=== PATIENT | male | born 1985 | race Caucasian/White ===

== ENCOUNTER 2016-09-16 18:18 | Emergency (ER) | payer MEDICAID ==
[2016-09-16] MEDS ORDERED: Sodium Chloride 0.9% 10 ML Syringe FLUSH PRN (18:25)
[2016-09-16] MEDS ORDERED: Lactated Ringers 1,000 ML IV ONE (19:15)
[2016-09-16] MEDS ORDERED: LORazepam 2 MG/ML MDV IVPUSH ONE (19:32)
[2016-09-16] MEDS ORDERED: LORazepam 2 MG/ML MDV ONE (19:36)
[2016-09-16] MEDS ORDERED: Haloperidol Lactate 5 MG/ML SDV IVPUSH STA (19:45)
[2016-09-16] MEDS ORDERED: Haloperidol Lactate 5 MG/ML SDV IVPUSH ONE (19:45)
[2016-09-16] MEDS ORDERED: Haloperidol Lactate 5 MG/ML SDV ONE (19:48)
[2016-09-16 20:16] VITALS: BP 129/70
--- NOTE | 2016-09-16 21:15 | EDM.PDOC ---
ED HPI GENERAL MEDICAL PROBLEM - General Chief Complaint: Drug or Alcohol Abuse Stated Complaint: [facility] Time Seen by Provider: 09/16/16 18:25 Source of Information: Reports: Patient History Limitations: Reports: No Limitations - History of Present Illness INITIAL COMMENTS - FREE TEXT/NARRATIVE: 31-year-old male is brought in by ambulance for evaluation and treatment of intoxication and suicidal ideation. The patient's friend, Eder, is present. Patient is unable to provide any history. He is only complaining of dental pain which appears at the present for the last at least 10 days. Eder states that he knew Trace growing up in [place]. They have been friends the last 20 years. He states that for the last few years he has been homeless after him and his he's had multiple other problems. As far as Eder is where he does not have any chronic underlying medical conditions. He has struggled with drug and alcohol abuse for the last 2 years but as he does not know the extent of this. Knows that he has been inpatient psych before as a teenager. Trace is currently staying at Eder's home. Eder states he found Matheus at home after drinking everclear. Unknown amount consumed. 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 Trace's mother called and stated that he is indeed homeless in [place]. He has struggled with drug and alcohol abuse. Reports he had a previous suicide attempt as a teenager. Reports he has been in the inpatient psych unit a teenager. Reports that he has overdosed on heroine in the past which nearly killed him. Treatments JAVA TECHNICAL ARCHITECT: Reports: IV/IO - Related Data Allergies Allergy/AdvReac Type Severity Reaction Status Date / Time Sulfa (Sulfonamide Allergy Itching Verified 09/16/16 19:06 Antibiotics) Past Medical History Neurological History: Reports: Brain injury Psychiatric History: Reports: Addiction, Bipolar - Past Surgical History HEENT Surgical History: Reports: Adenoidectomy, Tonsillectomy GI Surgical History: Reports: Appendectomy Social & Family History - Tobacco Use Smoking Status *Q: Current Every Day Smoker Years of Tobacco use: 17 Packs/Tins Daily: 1 Used Tobacco, but Quit: No Second Hand Smoke Exposure: No - Caffeine Use Caffeine Use: Reports: Soda - Alcohol Use Date of Last Drink: 09/16/16 Time of Last Drink: 17:00 - Recreational Drug Use Recreational Drug Use: Yes Drug Use in Last 12 Months: Yes Recreational Drug Type: Reports: Heroin, Marijuana/Hashish, Methamphetamine Other Recreational Drug Type: Patient's roommate states that patient last used marijuana 10 days ago, has had a heroin overdose in the past, and in the last month has used Meth. Recreational Drug Use Frequency: Daily ED ROS GENERAL - Review of Systems Review Of Systems: ROS reveals no pertinent complaints other than HPI. HEENT: Reports: Dental Pain - Physical Exam Exam: See Below Exam Limited By: Intoxication General Appearance: Alert, WD/WN, No Apparent Distress Throat/Mouth: Other (patinet intoxicated unable to evaluate dental complaint at this time as the patient is not compliant ) Respiratory/Chest: No Respiratory Distress, Lungs Clear, Normal Breath Sounds Cardiovascular: Normal Peripheral Pulses, Regular Rate, Rhythm, No Murmur GI/Abdominal: Soft, Non-Tender Neuro Exam (Abbreviated): Alert Skin Exam: Warm, Dry, Normal Color EKG INTERPRETATION EKG Date: 09/16/16 Time: 18:30 Rhythm: NSR Rate (beats/min): 77 [place]: normal P-wave: present QRS: normal ST-T: normal QT: normal EKG Interpretation Comments: NSR at 77 bpm. No ischemia. Reviewed by myself and Dr. Morales. Course - Vital Signs Last Recorded V/S: Last Vital Signs Temp 35.6 C 09/16/16 18:22 Pulse 93 09/16/16 20:15 Resp 17 09/16/16 20:15 BP 129/70 09/16/16 20:15 Pulse Ox 92 L 09/16/16 20:15 - Orders/Labs/Meds Orders: Active Orders 24 hr Category Date Time Status EKG 12 Lead [EKG Documentation Completion] [RC] STAT Care 09/16/16 18:26 Active Peripheral IV Care [RC] . DIRECTED Care 09/16/16 18:26 Active Peripheral IV Insertion Adult [OM.PC] Stat Oth 09/16/16 18:26 Ordered Labs: Laboratory Tests 09/16/16 09/16/16 09/16/16 Range/Units 18:15 18:15 18:15 WBC (4.23-9.07) K/mm3 RBC (4.63-6.08) M/mm3 Hgb (13.7-17.5) gm/L Hct (40.1-51.0) % MCV (79.0-92.2) fl MCH (25.7-32.2) pg MCHC (32.2-35.5) g/dl RDW Std Deviation (35.1-43.9) fL Plt Count (163-337) K/mm3 MPV (9.4-12.3) fl Neut % (Auto) (34.0-67.9) % Lymph % (Auto) (21.8-53.1) % [place] % (Auto) (5.3-12.2) % Eos % (Auto) (0.8-7.0) Baso % (Auto) (0.1-1.2) % Neut # (Auto) (1.78-5.38) K/mm3 Lymph # (Auto) (1.32-3.57) K/mm3 [place] # (Auto) (0.30-0.82) K/mm3 Eos # (Auto) (0.04-0.54) K/mm3 Baso # (Auto) (0.01-0.08) K/mm3 Sodium (136-145) mEq/L Potassium (3.5-5.1) mEq/L Chloride (98-107) mEq/L Carbon Dioxide (21-32) mEq/L Anion Gap (5-15) BUN (7-18) mg/dL Creatinine (0.7-1.3) mg/dL Est Cr Clr Drug Dosing Estimated GFR (MDRD) (>60) mL/min BUN/Creatinine Ratio (14-18) Glucose (74-106) mg/dL Calcium (8.5-10.1) mg/dL Magnesium (1.8-2.4) mg/dl Total Bilirubin (0.2-1.0) mg/dL AST (15-37) U/L ALT (16-63) U/L Alkaline Phosphatase (46-116) U/L Total Protein (6.4-8.2) g/dl Albumin (3.4-5.0) g/dl Globulin gm/dL Albumin/Globulin Ratio (1-2) TSH 3rd Generation 1.155 (0.358-3.74) uIU/mL Urine Color (Yellow) Urine Appearance (Clear) Urine pH (5.0-8.0) Ur Specific [place] (1.005-1.030) Urine Protein (Negative) Urine Glucose (UA) (Negative) Urine Ketones (Negative) Urine Occult Blood (Negative) Urine Nitrite (Negative) Urine Bilirubin (Negative) Urine Urobilinogen (0.2-1.0) Ur Leukocyte Esterase (Negative) Salicylates 2.1 L (2.8-20) mg/dL Urine Opiates Screen (NEGATIVE) Ur Buprenorphine Scrn (NEGATIVE) Ur Oxycodone Screen (NEGATIVE) Urine Methadone Screen (NEGATIVE) Ur Propoxyphene Screen (NEGATIVE) Acetaminophen 0 L (10-30) ug/mL Ur Barbiturates Screen (NEGATIVE) Ur Tricyclics Screen (NEGATIVE) Ur Phencyclidine Scrn (NEGATIVE) Ur Amphetamine Screen (NEGATIVE) U Methamphetamines Scrn (NEGATIVE) U Benzodiazepines Scrn (NEGATIVE) U Cocaine Metab Screen (NEGATIVE) U Marijuana (THC) Screen (NEGATIVE) Ethyl Alcohol (0.00) gm% 09/16/16 09/16/16 09/16/16 Range/Units 18:45 18:45 18:45 WBC 9.75 H (4.23-9.07) K/mm3 RBC 4.82 (4.63-6.08) M/mm3 Hgb 15.1 (13.7-17.5) gm/L Hct 43.6 (40.1-51.0) % MCV 90.5 (79.0-92.2) fl MCH 31.3 (25.7-32.2) pg MCHC 34.6 (32.2-35.5) g/dl RDW Std Deviation 42.2 (35.1-43.9) fL Plt Count 206 (163-337) K/mm3 MPV 8.5 L (9.4-12.3) fl Neut % (Auto) 68.2 H (34.0-67.9) % Lymph % (Auto) 23.0 (21.8-53.1) % [place] % (Auto) 6.7 (5.3-12.2) % Eos % (Auto) 1.6 (0.8-7.0) Baso % (Auto) 0.3 (0.1-1.2) % Neut # (Auto) 6.65 H (1.78-5.38) K/mm3 Lymph # (Auto) 2.24 (1.32-3.57) K/mm3 [place] # (Auto) 0.65 (0.30-0.82) K/mm3 Eos # (Auto) 0.16 (0.04-0.54) K/mm3 Baso # (Auto) 0.03 (0.01-0.08) K/mm3 Sodium 143 (136-145) mEq/L Potassium 3.7 (3.5-5.1) mEq/L Chloride 106 (98-107) mEq/L Carbon Dioxide 26 (21-32) mEq/L Anion Gap 14.7 (5-15) BUN 12 (7-18) mg/dL Creatinine 0.9 (0.7-1.3) mg/dL Est Cr Clr Drug Dosing TNP Estimated GFR (MDRD) > 60 (>60) mL/min BUN/Creatinine Ratio 13.3 L (14-18) Glucose 117 H (74-106) mg/dL Calcium 8.1 L (8.5-10.1) mg/dL Magnesium 2.0 (1.8-2.4) mg/dl Total Bilirubin 0.3 (0.2-1.0) mg/dL AST 43 H (15-37) U/L ALT 91 H (16-63) U/L Alkaline Phosphatase 83 (46-116) U/L Total Protein 7.0 (6.4-8.2) g/dl Albumin 3.6 (3.4-5.0) g/dl Globulin 3.4 gm/dL Albumin/Globulin Ratio 1.1 (1-2) TSH 3rd Generation (0.358-3.74) uIU/mL Urine Color (Yellow) Urine Appearance (Clear) Urine pH (5.0-8.0) Ur Specific [place] (1.005-1.030) Urine Protein (Negative) Urine Glucose (UA) (Negative) Urine Ketones (Negative) Urine Occult Blood (Negative) Urine Nitrite (Negative) Urine Bilirubin (Negative) Urine Urobilinogen (0.2-1.0) Ur Leukocyte Esterase (Negative) Salicylates (2.8-20) mg/dL Urine Opiates Screen (NEGATIVE) Ur Buprenorphine Scrn (NEGATIVE) Ur Oxycodone Screen (NEGATIVE) Urine Methadone Screen (NEGATIVE) Ur Propoxyphene Screen (NEGATIVE) Acetaminophen (10-30) ug/mL Ur Barbiturates Screen (NEGATIVE) Ur Tricyclics Screen (NEGATIVE) Ur Phencyclidine Scrn (NEGATIVE) Ur Amphetamine Screen (NEGATIVE) U Methamphetamines Scrn (NEGATIVE) U Benzodiazepines Scrn (NEGATIVE) U Cocaine Metab Screen (NEGATIVE) U Marijuana (THC) Screen (NEGATIVE) Ethyl Alcohol 0.26 (0.00) gm% 09/16/16 09/16/16 09/16/16 Range/Units 20:00 20:00 23:25 WBC (4.23-9.07) K/mm3 RBC (4.63-6.08) M/mm3 Hgb (13.7-17.5) gm/L Hct (40.1-51.0) % MCV (79.0-92.2) fl MCH (25.7-32.2) pg MCHC (32.2-35.5) g/dl RDW Std Deviation (35.1-43.9) fL Plt Count (163-337) K/mm3 MPV (9.4-12.3) fl Neut % (Auto) (34.0-67.9) % Lymph % (Auto) (21.8-53.1) % [place] % (Auto) (5.3-12.2) % Eos % (Auto) (0.8-7.0) Baso % (Auto) (0.1-1.2) % Neut # (Auto) (1.78-5.38) K/mm3 Lymph # (Auto) (1.32-3.57) K/mm3 [place] # (Auto) (0.30-0.82) K/mm3 Eos # (Auto) (0.04-0.54) K/mm3 Baso # (Auto) (0.01-0.08) K/mm3 Sodium (136-145) mEq/L Potassium (3.5-5.1) mEq/L Chloride (98-107) mEq/L Carbon Dioxide (21-32) mEq/L Anion Gap (5-15) BUN (7-18) mg/dL Creatinine (0.7-1.3) mg/dL Est Cr Clr Drug Dosing Estimated GFR (MDRD) (>60) mL/min BUN/Creatinine Ratio (14-18) Glucose (74-106) mg/dL Calcium (8.5-10.1) mg/dL Magnesium (1.8-2.4) mg/dl Total Bilirubin (0.2-1.0) mg/dL AST (15-37) U/L ALT (16-63) U/L Alkaline Phosphatase (46-116) U/L Total Protein (6.4-8.2) g/dl Albumin (3.4-5.0) g/dl Globulin gm/dL Albumin/Globulin Ratio (1-2) TSH 3rd Generation (0.358-3.74) uIU/mL Urine Color Yellow (Yellow) Urine Appearance Slt cloudy H (Clear) Urine pH 6.0 (5.0-8.0) Ur Specific [place] 1.020 (1.005-1.030) Urine Protein Negative (Negative) Urine Glucose (UA) Negative (Negative) Urine Ketones Negative (Negative) Urine Occult Blood Negative (Negative) Urine Nitrite Negative (Negative) Urine Bilirubin Negative (Negative) Urine Urobilinogen 0.2 (0.2-1.0) Ur Leukocyte Esterase Negative (Negative) Salicylates (2.8-20) mg/dL Urine Opiates Screen Negative (NEGATIVE) Ur Buprenorphine Scrn Negative (NEGATIVE) Ur Oxycodone Screen Negative (NEGATIVE) Urine Methadone Screen Negative (NEGATIVE) Ur Propoxyphene Screen Negative (NEGATIVE) Acetaminophen (10-30) ug/mL Ur Barbiturates Screen Negative (NEGATIVE) Ur Tricyclics Screen Negative (NEGATIVE) Ur Phencyclidine Scrn Negative (NEGATIVE) Ur Amphetamine Screen Negative (NEGATIVE) U Methamphetamines Scrn Negative (NEGATIVE) U Benzodiazepines Scrn Negative (NEGATIVE) U Cocaine Metab Screen Negative (NEGATIVE) U Marijuana (THC) Screen Presumptive positive H (NEGATIVE) Ethyl Alcohol 0.17 (0.00) gm% Meds: Medications Discontinued Medications Generic Name Dose Route Start Last Admin Trade Name Freq PRN Reason Stop Dose Admin Haloperidol Lactate 5 mg 09/16/16 19:45 09/16/16 19:50 Haldol IVPUSH 09/16/16 19:46 5 mg ONETIME STA Administration Haloperidol Lactate 5 mg 09/16/16 19:45 09/16/16 19:58 Haldol IVPUSH 09/16/16 19:46 Not Given ONETIME ONE Haloperidol Lactate Confirm 09/16/16 19:48 09/16/16 19:58 Haldol Administered 09/16/16 19:49 Not Given Dose 5 mg .ROUTE .STK-MED ONE Lactated Ringer's 1,000 mls @ 999 mls/hr 09/16/16 19:15 09/16/16 19:44 Ringers, Lactated IV 09/16/16 20:15 999 mls/hr .BOLUS ONE Administration Lactated Ringer's 1,000 mls @ 100 mls/hr 09/16/16 21:35 09/16/16 21:49 Ringers, Lactated IV 09/17/16 07:34 100 mls/hr NOW STA Administration Lorazepam 1 mg 09/16/16 19:32 09/16/16 19:42 Ativan IVPUSH 09/16/16 19:33 1 mg ONETIME ONE Administration Lorazepam Confirm 09/16/16 19:36 09/16/16 19:42 Ativan Administered 09/16/16 19:37 Not Given Dose 2 mg .ROUTE .STK-MED ONE Sodium Chloride 10 ml 09/16/16 18:25 09/16/16 19:42 Saline Flush FLUSH 10 ml ASDIRECTED PRN Administration Keep Vein Open - Re-Assessments/Exams Free Text/Narrative Re-Assessment/Exam: 09/16/16 19:52 The patient was initially resting peacefully while in the ED. He then became combative. He is given 1 mg IV Ativan which did not have any effect on him. He is then given 5 mg IV Haldol which was able to provide adequate sedation. He was placed in leather restraints due to his attempts to harm nursing staff. Police were notified and presented to the ER. Patient made comments about the police and threatened to harm them and their families. 09/16/16 20:30 Labs returned. White blood cell count is 9.75, hgb is 15.1 and plts are 206. sodium is 143, potassium is 3.7 chloride is 106. Anion gap is 14.7. Glucose is 117. TSH is within normal limits at 1.155. Magnesium is 2.0. Salicylate is within normal limits at 2.1. Acetaminophen is zero. UA is negative for any ketones, glucose, nitrites, leukocytes, blood or protein. Drug screen Is positive for THC. Alcohol is 0.26. AST is mildly elevated at 43, ALT is mildly elevated 91 alkaline phosphatase is 83. Patient is now sleeping soundly. 09/16/16 23:06 Patient is now more alert. Does not want help with alcohol. Is now denying suicidal ideation or a suicidal plan. Denying homicidal ideation or plan 09/17/16 00:21 Patient's blood alcohol is now 0.17. He is answering questions appropriate. He somehow managed to get out of his leather restraints. He is not combative at this time. he reports that he is only sleepy. Denies pain. Again, He denies any suicidal ideation or suicidal plans. He denies any homicidal ideation or homicidal plan. At this point I feel that he is safe and appropriate to go to [facility] where he can be monitored while he is intoxicated. We will notify the police and have them come and get him Departure - Departure Time of Disposition: 00:33 Disposition: DC/Tfer to Court of Law En 21 Condition: fair Clinical Impression: Intoxication - Discharge Information Instructions: Alcohol Intoxication, [id number] Referrals: PCP,Unknown [Primary Care Provider] - Additional Instructions: Patient to go with police for the night for intoxication.
[2016-09-16] MEDS ORDERED: Lactated Ringers 1,000 ML IV STA (21:35)
== END 2016-09-17 00:42 ==
LOC: JD.ED 18:18
DX: F10.129 Alcohol abuse with intoxication, unspecified (principal); F31.9 Bipolar disorder, unspecified; F17.210 Nicotine dependence, cigarettes, uncomplicated; Z90.49 Acquired absence of other specified parts of digestive tract; Z98.890 Other specified postprocedural states; Z88.2 Allergy status to sulfonamides
CPT/HCPCS: 36415; 80053; 80306; 81003; 83735; 84443; 85025; 93005; 96361; 96374; 96375; 99285; G0480; J1630; J2060; J7050; J7120; P9612; 99283

== ENCOUNTER 2017-03-02 11:32 | Emergency (ER) | payer MEDICAID ==
[2017-03-02] MEDS ORDERED: Sodium Chloride 0.9% 1,000 ML IV ONE (12:19)
[2017-03-02] MEDS ORDERED: Famotidine 20 MG/2 ML SDV IVPUSH ONE (12:19)
[2017-03-02] MEDS ORDERED: Ketorolac 30 MG/ML SDV IVPUSH ONE (12:19)
[2017-03-02] MEDS ORDERED: Ondansetron 4 MG/2 ML SDV IVPUSH ONE (12:19)
[2017-03-02] MEDS ORDERED: Sodium Chloride 0.9% 10 ML Syringe FLUSH PRN (12:19)
--- NOTE | 2017-03-02 12:35 | EDM.PDOC ---
ED HPI GENERAL MEDICAL PROBLEM - General Chief Complaint: Gastrointestinal Problem Stated Complaint: CP, NAUSEA Time Seen by Provider: 03/02/17 12:07 Source of Information: Reports: Patient History Limitations: Reports: No Limitations - History of Present Illness INITIAL COMMENTS - FREE TEXT/NARRATIVE: 31-year-old male presents for evaluation and treatment of epigastric pain, nausea and vomiting. Patient reports last night around 3 or 4 in the morning he developed chest pain. Reports he went to bed around 4 AM and when he woke around 10 AM the chest pain has subsided. He no longer chest pain today. No shortness of breath. Patient reports that he ate some [employer] last night and had some waffles and coffee this morning. He reports he is currently having pain to the epigastric area. reports he's had about 3 or 4 episodes of vomiting today. Patient denies any current chest pain. Patient reports that he had similar symptoms about 2-3 weeks ago. Reports he had these after eating some questionable meat. He was seen at the [facility] and given something to help settle his stomach. He is unsure what this is. He denies any ill contacts. Upper Epigastric Pain Score (Numeric/FACES): 5 - Related Data Allergies Allergy/AdvReac Type Severity Reaction Status Date / Time Sulfa (Sulfonamide Allergy Itching Verified 09/16/16 19:06 Antibiotics) Home Meds: Home Meds Omeprazole 20 mg PO DAILY #30 cap.cr 03/02/17 [Rx] Ondansetron [Zofran ODT] 4 mg PO Q6H PRN #15 tab.dis 03/02/17 [Rx] Past Medical History Neurological History: Reports: Brain Injury Psychiatric History: Reports: Addiction, Bipolar - Past Surgical History HEENT Surgical History: Reports: Adenoidectomy, Tonsillectomy Social & Family History - Tobacco Use Smoking Status *Q: Current Every Day Smoker Years of Tobacco use: 16 Packs/Tins Daily: 0.5 Used Tobacco, but Quit: No Second Hand Smoke Exposure: No - Caffeine Use Caffeine Use: Reports: Coffee, Tea - Recreational Drug Use Recreational Drug Use: Yes Drug Use in Last 12 Months: Yes Recreational Drug Type: Reports: Marijuana/Hashish Other Recreational Drug Type: Patient's roommate states that patient last used marijuana 10 days ago, has had a heroin overdose in the past, and in the last month has used Meth. Recreational Drug Use Frequency: Daily ED ROS GENERAL - Review of Systems Review Of Systems: See Below Respiratory: Denies: Shortness of Breath Cardiovascular: Reports: Chest Pain (last night now resolved) GI/Abdominal: Reports: Abdominal Pain (epigastric), Diarrhea (3-4 episodes today ), Nausea, Vomiting ED EXAM, GI/ABD - Physical Exam Exam: See Below Exam Limited By: No Limitations General Appearance: Alert, WD/WN, No Apparent Distress Ears: Normal External Exam Nose: Normal Inspection Throat/Mouth: Normal Inspection, Normal Lips, Normal Voice, No Airway Compromise Neck: Normal Inspection Respiratory/Chest: No Respiratory Distress, Lungs Clear, Normal Breath Sounds Cardiovascular: Normal Peripheral Pulses, Regular Rate, Rhythm, No Murmur GI/Abdominal Exam: Normal Bowel Sounds, Soft, No Distention, Tender (epigastric area) Neurological: Alert, Oriented, Normal Cognition Psychiatric: Normal Affect, Normal Mood Skin Exam: Warm, Dry, Normal Color EKG INTERPRETATION EKG Date: 03/02/17 Time: 12:50 Rhythm: NSR Rate (Beats/Min): 59 [place]: Normal P-Wave: Present QRS: Normal ST-T: Normal QT: Normal EKG Interpretation Comments: NSR at 59 bpm, sinus bradycardia, diffuse J-point elevation - likely physiologic. No ischemic changes. Reviewed by myself and Dr. Jacobs. Course - Vital Signs Last Recorded V/S: Last Vital Signs Temp 36.3 C 03/02/17 11:43 Pulse 67 03/02/17 11:43 Resp 20 03/02/17 11:43 BP 157/86 H 03/02/17 11:43 Pulse Ox 98 03/02/17 11:43 - Orders/Labs/Meds Orders: Active Orders 24 hr Category Date Time Status Cardiac Monitoring [RC] . DIRECTED Care 03/02/17 12:19 Active EKG Documentation Completion [RC] ASDIRECTED Care 03/02/17 12:20 Active Peripheral IV Care [RC] . DIRECTED Care 03/02/17 12:20 Active Peripheral IV Insertion Adult [OM.PC] Routine Oth 03/02/17 12:19 Ordered EKG 12 Lead [EK] Stat Ther 03/02/17 12:19 Ordered Labs: Laboratory Tests 03/02/17 03/02/17 03/02/17 Range/Units 13:05 13:05 14:05 WBC 5.10 (4.23-9.07) K/mm3 RBC 5.03 (4.63-6.08) M/mm3 Hgb 15.6 (13.7-17.5) gm/L Hct 44.5 (40.1-51.0) % MCV 88.5 (79.0-92.2) fl MCH 31.0 (25.7-32.2) pg MCHC 35.1 (32.2-35.5) g/dl RDW Std Deviation 41.7 (35.1-43.9) fL Plt Count 233 (163-337) K/mm3 MPV 8.5 L (9.4-12.3) fl Neutrophils % (Manual) 44 (40-60) % Band Neutrophils % 0 (0-10) % Lymphocytes % (Manual) 49 H (20-40) % Atypical Lymphs % 0 % Monocytes % (Manual) 5 (2-10) % Eosinophils % (Manual) 1 (0.8-7.0) % Basophils % (Manual) 1 (0.2-1.2) Platelet Estimate Adequate RBC Morph Comment Normal Sodium 142 (136-145) mEq/L Potassium 4.4 (3.5-5.1) mEq/L Chloride 107 (98-107) mEq/L Carbon Dioxide 28 (21-32) mEq/L Anion Gap 11.4 (5-15) BUN 10 (7-18) mg/dL Creatinine 1.0 (0.7-1.3) mg/dL Est Cr Clr Drug Dosing 130.20 mL/min Estimated GFR (MDRD) > 60 (>60) mL/min BUN/Creatinine Ratio 10.0 L (14-18) Glucose 92 (74-106) mg/dL Calcium 8.8 (8.5-10.1) mg/dL Total Bilirubin 0.6 (0.2-1.0) mg/dL GGT 53 (15-85) U/L AST 29 (15-37) U/L ALT 53 (16-63) U/L Alkaline Phosphatase 75 (46-116) U/L Troponin I < 0.017 (0.00-0.056) ng/mL C-Reactive Protein < 0.2 (<1.0) mg/dL Total Protein 7.5 (6.4-8.2) g/dl Albumin 3.9 (3.4-5.0) g/dl Globulin 3.6 gm/dL Albumin/Globulin Ratio 1.1 (1-2) Lipase 138 (73-393) U/L Urine Color Yellow (Yellow) Urine Appearance Clear (Clear) Urine pH 7.0 (5.0-8.0) Ur Specific [place] 1.020 (1.005-1.030) Urine Protein Negative (Negative) Urine Glucose (UA) Negative (Negative) Urine Ketones Negative (Negative) Urine Occult Blood Negative (Negative) Urine Nitrite Negative (Negative) Urine Bilirubin Negative (Negative) Urine Urobilinogen 0.2 (0.2-1.0) Ur Leukocyte Esterase Negative (Negative) Urine RBC Not seen (0-5) /hpf Urine WBC 0-5 (0-5) /hpf Ur Epithelial Cells Not seen (0-5) /hpf Urine Bacteria Rare (FEW) /hpf Urine Mucus Not seen (FEW) /hpf Ethyl Alcohol 0.00 (0.00) gm% Meds: Medications Discontinued Medications Generic Name Dose Route Start Last Admin Trade Name Freq PRN Reason Stop Dose Admin Al Hydroxide/Mg Hydroxide 30 0 ml 03/02/17 14:32 03/02/17 14:42 ml/ Lidocaine HCl 15 ml PO 03/02/17 14:33 45 ml ONETIME ONE Administration Famotidine 20 mg 03/02/17 12:19 03/02/17 12:47 Pepcid IVPUSH 03/02/17 12:20 20 mg ONETIME ONE Administration Sodium Chloride 1,000 mls @ 999 mls/hr 03/02/17 12:19 03/02/17 12:46 Normal Saline IV 03/02/17 13:19 999 mls/hr ONETIME ONE Administration Ketorolac Tromethamine 30 mg 03/02/17 12:19 03/02/17 12:47 Toradol IVPUSH 03/02/17 12:20 30 mg ONETIME ONE Administration Ondansetron HCl 4 mg 03/02/17 12:19 03/02/17 12:46 Zofran IVPUSH 03/02/17 12:20 4 mg ONETIME ONE Administration Sodium Chloride 10 ml 03/02/17 12:19 03/02/17 12:48 Saline Flush FLUSH 10 ml ASDIRECTED PRN Administration Keep Vein Open - Radiology Interpretation Free Text/Narrative:: chest xray [address] Donald :1. Nothing acute is identified on two-view chest x-ray. - Re-Assessments/Exams Free Text/Narrative Re-Assessment/Exam: 03/02/17 14:37 Reports discomfort is persisting. GI cocktail ordered. I reviewed the labs with patient. I feel this is likely gastroenteritis. 03/02/17 15:07 Symptoms have resolved. I will put him on some omeprazole and some Zofran for nausea. Follow-up with family medicine. Discharge instructions as documented. Departure - Departure Time of Disposition: 15:07 Disposition: Home, Self-Care 01 Condition: Good Clinical Impression: Gastroenteritis - Discharge Information Prescriptions: Omeprazole 20 mg PO DAILY #30 cap.cr Ondansetron [Zofran ODT] 4 mg PO Q6H PRN #15 tab.dis PRN Reason: Nausea Instructions: Viral Gastroenteritis, Adult, [id number] Referrals: PCP,None [Primary Care Provider] - Milena Pratt [Physician] - Forms: ED Department Discharge, ED Return to Work/School Form Additional Instructions: Take the Zofran 1 tab sublingual every 6-8 hours as needed for nausea. Omeprazole 1 tab daily. Follow-up with family medicine within 2 weeks for recheck of your symptoms. Recommend Dr. Cowan. Please call [phone] Cowan [facility]. I recommend avoiding spicy foods and alcohol. Please return to the ER if your symptoms change or worsen. - My Orders Last 24 Hours: My Active Orders 03/02/17 12:19 Cardiac Monitoring [RC] . DIRECTED Peripheral IV Insertion Adult [OM.PC] Routine EKG 12 Lead [EK] Stat 03/02/17 12:20 EKG Documentation Completion [RC] ASDIRECTED Peripheral IV Care [RC] . DIRECTED - Assessment/Plan Last 24 Hours: My Active Orders 03/02/17 12:19 Cardiac Monitoring [RC] . DIRECTED Peripheral IV Insertion Adult [OM.PC] Routine EKG 12 Lead [EK] Stat 03/02/17 12:20 EKG Documentation Completion [RC] ASDIRECTED Peripheral IV Care [RC] . DIRECTED
[2017-03-02] MEDS ORDERED: Alum Hydrox/Mag Hydrox/Simeth 30 ML, Lidocaine 2% 15 ML PO ONE ×2 (14:32)
--- NOTE | 2017-03-02 15:26 | CR ---
Chest: Two views of the chest were obtained. Comparison: No prior chest x-ray. Heart size and mediastinum are normal. Lungs are clear. Bony structures are within normal limits for the patient's age. Impression: 1. Nothing acute is identified on two-view chest x-ray. Diagnostic code #1
== END 2017-03-02 15:21 | disposition home or self-care (01) ==
LOC: JD.ED 11:32
DX: K52.9 Noninfective gastroenteritis and colitis, unspecified (principal); Z88.2 Allergy status to sulfonamides; F17.210 Nicotine dependence, cigarettes, uncomplicated
CPT/HCPCS: 36415; 71020; 80053; 81001; 82977; 83690; 84484; 85025; 86140; 93005; 96361; 96374; 96375; 99284; A9270; G0480; J1885; J2405; J7040; J7050

== ENCOUNTER 2019-03-21 01:25 | Emergency (ER) | payer SELFPAY ==
[2019-03-21] MEDS ORDERED: Aspirin 81 MG Tab.Chew PO ONE (01:54)
--- NOTE | 2019-03-21 01:54 | EDM.PDOC ---
ED HPI GENERAL MEDICAL PROBLEM - General Chief Complaint: Chest Pain Stated Complaint: CHEST PAIN Time Seen by Provider: 03/21/19 01:47 - History of Present Illness INITIAL COMMENTS - FREE TEXT/NARRATIVE: 33-year-old male presents emergency room with chest pain. Patient has had this chest pain for about a week it's progressively getting worse it subsided several days ago then came back and seems to be getting worse. Tonight the patient's have a lot of palpitations. Worsening pain. He is unsure if it radiates into his neck and shoulders because he always has pain there anyway. Patient has a strong family history of coronary artery disease his uncle had an [place] in his mid-40s his father at 61 of an [place]. Patient smokes a pack of cigarettes a day he works at [employer] and eats at [employer] frequently. 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 Musculoskeletal History: Reports: None Neurological History: Reports: Brain Injury Psychiatric History: Reports: Addiction, Bipolar Endocrine/Metabolic History: Reports: None Hematologic History: Reports: None Immunologic History: Reports: None Oncologic (Cancer) History: Reports: None Dermatologic History: Reports: None - Past Surgical History Head Surgeries/Procedures: Reports: None HEENT Surgical History: Reports: Adenoidectomy, Eye Surgery, Tonsillectomy Cardiovascular Surgical History: Reports: None Respiratory Surgical History: Reports: None GI Surgical History: Reports: None, Appendectomy Female Surgical History: Reports: None Male Surgical History: Reports: None Endocrine Surgical History: Reports: None Neurological Surgical History: Reports: None Musculoskeletal Surgical History: Reports: None Oncologic Surgical History: Reports: None Dermatological Surgical History: Reports: None Social & Family History - Caffeine Use Caffeine Use: Reports: Coffee, Tea ED ROS GENERAL - Review of Systems Review Of Systems: See Below Constitutional: Reports: No Symptoms HEENT: Reports: No Symptoms Respiratory: Reports: No Symptoms Cardiovascular: Reports: No Symptoms Endocrine: Reports: No Symptoms GI/Abdominal: Reports: No Symptoms : Reports: No Symptoms ED EXAM, GENERAL - Physical Exam Exam: See Below Exam Limited By: No Limitations General Appearance: Alert, No Apparent Distress Head: Atraumatic, Normocephalic Neck: Normal Inspection, Supple, Non-Tender, Full Range of Motion Respiratory/Chest: No Respiratory Distress, Lungs Clear, Normal Breath Sounds Cardiovascular: Regular Rate, Rhythm, No Edema, No Murmur GI/Abdominal: Normal Bowel Sounds, Soft, Non-Tender, Other (Obese) Course - Vital Signs Last Recorded V/S: Last Vital Signs Temp 35.9 C 03/21/19 01:40 Pulse 95 03/21/19 01:40 Resp 14 03/21/19 01:40 BP 130/72 03/21/19 02:43 Pulse Ox 98 03/21/19 01:40 - Orders/Labs/Meds Orders: Active Orders 24 hr Category Date Time Status EKG 12 Lead [EKG Documentation Completion] [RC] ROUTINE Care 03/21/19 03:00 Active EKG 12 Lead [EKG Documentation Completion] [RC] STAT Care 03/21/19 01:47 Active Chest 1V Frontal [CR] Stat Exams 03/21/19 01:55 Taken Nitroglycerin [Nitrostat] Med 03/21/19 01:54 Active 0.4 mg SL Q5M PRN Medication Orders Nitroglycerin (Nitrostat) 0.4 mg SL Q5M PRN PRN Reason: Chest Pain Last Admin: 03/21/19 02:43 Dose: 0.4 mg Admin: 03/21/19 02:01 Dose: 0.4 mg Labs: Laboratory Tests 03/21/19 03/21/19 03/21/19 Range/Units 02:05 02:05 02:05 WBC 7.76 (4.23-9.07) K/mm3 RBC 5.03 (4.63-6.08) M/mm3 Hgb 15.4 (13.7-17.5) gm/dl Hct 44.6 (40.1-51.0) % MCV 88.7 (79.0-92.2) fl MCH 30.6 (25.7-32.2) pg MCHC 34.5 (32.2-35.5) g/dl RDW Std Deviation 42.8 (35.1-43.9) fL Plt Count 221 (163-337) K/mm3 MPV 8.7 L (9.4-12.3) fl Neutrophils % (Manual) 42 (40-60) % Band Neutrophils % 0 (0-10) % Lymphocytes % (Manual) 46 H (20-40) % Atypical Lymphs % 0 % Monocytes % (Manual) 8 (2-10) % Eosinophils % (Manual) 3 (0.8-7.0) % Basophils % (Manual) 1 (0.2-1.2) Platelet Estimate Adequate Plt Morphology Comment Normal RBC Morph Comment Normal PT 10.0 (9.7-12.0) SECONDS INR < 0.93 APTT 24 (22-31) SECONDS Sodium 142 (136-145) mEq/L Potassium 3.8 (3.5-5.1) mEq/L Chloride 106 (98-107) mEq/L Carbon Dioxide 25 (21-32) mEq/L Anion Gap 14.8 (5-15) BUN 18 (7-18) mg/dL Creatinine 1.2 (0.7-1.3) mg/dL Est Cr Clr Drug Dosing 106.49 mL/min Estimated GFR (MDRD) > 60 (>60) mL/min BUN/Creatinine Ratio 15.0 (14-18) Glucose 115 H (74-106) mg/dL Calcium 8.5 (8.5-10.1) mg/dL Total Bilirubin 0.5 (0.2-1.0) mg/dL AST 21 (15-37) U/L ALT 58 (16-63) U/L Alkaline Phosphatase 81 (46-116) U/L Troponin I < 0.017 (0.00-0.056) ng/mL Total Protein 7.8 (6.4-8.2) g/dl Albumin 4.1 (3.4-5.0) g/dl Globulin 3.7 gm/dL Albumin/Globulin Ratio 1.1 (1-2) 03/21/19 Range/Units 04:31 WBC (4.23-9.07) K/mm3 RBC (4.63-6.08) M/mm3 Hgb (13.7-17.5) gm/dl Hct (40.1-51.0) % MCV (79.0-92.2) fl MCH (25.7-32.2) pg MCHC (32.2-35.5) g/dl RDW Std Deviation (35.1-43.9) fL Plt Count (163-337) K/mm3 MPV (9.4-12.3) fl Neutrophils % (Manual) (40-60) % Band Neutrophils % (0-10) % Lymphocytes % (Manual) (20-40) % Atypical Lymphs % % Monocytes % (Manual) (2-10) % Eosinophils % (Manual) (0.8-7.0) % Basophils % (Manual) (0.2-1.2) Platelet Estimate Plt Morphology Comment RBC Morph Comment PT (9.7-12.0) SECONDS INR APTT (22-31) SECONDS Sodium (136-145) mEq/L Potassium (3.5-5.1) mEq/L Chloride (98-107) mEq/L Carbon Dioxide (21-32) mEq/L Anion Gap (5-15) BUN (7-18) mg/dL Creatinine (0.7-1.3) mg/dL Est Cr Clr Drug Dosing mL/min Estimated GFR (MDRD) (>60) mL/min BUN/Creatinine Ratio (14-18) Glucose (74-106) mg/dL Calcium (8.5-10.1) mg/dL Total Bilirubin (0.2-1.0) mg/dL AST (15-37) U/L ALT (16-63) U/L Alkaline Phosphatase (46-116) U/L Troponin I < 0.017 (0.00-0.056) ng/mL Total Protein (6.4-8.2) g/dl Albumin (3.4-5.0) g/dl Globulin gm/dL Albumin/Globulin Ratio (1-2) Meds: Medications Generic Name Dose Route Start Last Admin Trade Name Freq PRN Reason Stop Dose Admin Nitroglycerin 0.4 mg 03/21/19 01:54 03/21/19 02:43 Nitrostat SL 0.4 mg Q5M PRN Administration Chest Pain Discontinued Medications Generic Name Dose Route Start Last Admin Trade Name Freq PRN Reason Stop Dose Admin Aspirin 324 mg 03/21/19 01:54 03/21/19 02:00 Aspirin PO 03/21/19 01:55 324 mg ONETIME ONE Administration - Re-Assessments/Exams Free Text/Narrative Re-Assessment/Exam: 03/21/19 02:31 Patient is doing much better after 1 sublingual nitroglycerin he also received 324 mg of aspirin. He is essentially pain-free at this time 03/21/19 02:54 Patient had recurrence of some chest pressure not nearly as bad as it was this resolved with another nitroglycerin. 03/21/19 05:45 Patient has remained pain free here second nitroglycerin negative calculated is heart score and he has a heart score of 4 with a moderately suspicious history nonspecific repolarization disturbance on EKG and greater than 3 risk factors. I did discuss this with the patient patient's mother the mother would like the patient to stay but the patient declines admission at this point. The patient will be discharged with nitroglycerin he's been advised to take a baby aspirin daily he will be scheduled for an outpatient stress Cardiolite. Departure - Departure Time of Disposition: 05:48 Disposition: Home, Self-Care 01 Clinical Impression: Chest pain, Angina pectoris - Discharge Information Prescriptions: Nitroglycerin [Nitrostat] 0.4 mg SL ASDIRECTED PRN #1 bottle PRN Reason: Chest Pain Referrals: PCP,None [Primary Care Provider] - Forms: ED Department Discharge Additional Instructions: Return to the emergency room with any questions problems or worsening symptoms. Use the nitroglycerin as needed for chest pain. May repeat every 5 minutes. If a third nitroglycerin is needed return to the emergency room immediately. Follow -up with a stress test. Follow-up at the Hospital clinic in a few days and a couple days after the stress test. You can schedule an appointment at [phone] [facility] baby aspirin enteric-coated this should be to 81 mg take 1 daily. - My Orders Last 24 Hours: My Active Orders 03/21/19 01:47 EKG 12 Lead [EKG Documentation Completion] [RC] STAT 03/21/19 01:54 Nitroglycerin [Nitrostat] 0.4 mg SL Q5M PRN 03/21/19 01:55 Chest 1V Frontal [CR] Stat 03/21/19 03:00 EKG 12 Lead [EKG Documentation Completion] [RC] ROUTINE - Assessment/Plan Last 24 Hours: My Active Orders 03/21/19 01:47 EKG 12 Lead [EKG Documentation Completion] [RC] STAT 03/21/19 01:54 Nitroglycerin [Nitrostat] 0.4 mg SL Q5M PRN 03/21/19 01:55 Chest 1V Frontal [CR] Stat 03/21/19 03:00 EKG 12 Lead [EKG Documentation Completion] [RC] ROUTINE
[2019-03-21] MEDS: Nitroglycerin 0.4 MG Tab.SL SL PRN ×2 (02:01→02:43)
--- NOTE | 2019-03-21 06:59 | CR ---
Chest: Portable view of the chest was obtained. Comparison: Prior chest x-ray of 03/02/17. Heart size and mediastinum are normal. Lungs are clear with no acute parenchymal change. Bony structures are grossly intact. Impression: 1. Nothing acute is seen on portable chest x-ray. Diagnostic code #1
== END 2019-03-21 06:00 | disposition home or self-care (01) ==
LOC: JD.ED 01:25
DX: I20.9 Angina pectoris, unspecified (principal); F17.210 Nicotine dependence, cigarettes, uncomplicated; Z88.2 Allergy status to sulfonamides
CPT/HCPCS: 36415; 71045; 80053; 84484; 85007; 85027; 85610; 85730; 93005; 99285; A9270; 93010; 99284

== ENCOUNTER 2019-12-30 13:37 | Emergency (ER) | payer OTHER, SELFPAY ==
[2019-12-30] MEDS ORDERED: Aspirin 81 MG Tab.Chew PO ONE (14:07)
[2019-12-30] MEDS ORDERED: Sodium Chloride 0.9% 10 ML Syringe FLUSH PRN (14:07)
[2019-12-30] MEDS ORDERED: Acetaminophen 325 MG Tab PO ONE (14:07)
--- NOTE | 2019-12-30 14:27 | EDM.PDOC ---
ED HPI GENERAL MEDICAL PROBLEM - General Chief Complaint: Chest Pain Stated Complaint: SOB AND CHEST PAIN Time Seen by Provider: 12/30/19 13:48 Source of Information: Reports: Patient, RN Notes Reviewed - History of Present Illness INITIAL COMMENTS - FREE TEXT/NARRATIVE: 34 yr old male with L sided chest pain. He has been having discomfort off and on for about 6 months but worse yesterday and today. It does not radiate. He has not been ill with cough, fever or sore throat. States he is more stressed out than usual right now, Has really cut back on smoking but has smoked a lot more than usual yesterday and today. Was advised to follow up with Cardiology after ED visit last March but due to no medical insurance has not been able to do that. 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[employer]: 81 mg chewable x 3 today Left Chest Pain Score (Numeric/FACES): 4 - Related Data Allergies Allergy/AdvReac Type Severity Reaction Status Date / Time Sulfa (Sulfonamide Allergy Severe Itching Verified 12/30/19 13:45 Antibiotics) Home Meds: Home Meds Nitroglycerin [Nitrostat] 0.4 mg SL ASDIRECTED PRN #1 bottle 03/21/19 [Rx] Aspirin [Halfprin] 81 mg PO DAILY 12/30/19 [History] Past Medical History HEENT History: Reports: Impaired Vision Cardiovascular History: Reports: None Respiratory History: Reports: None Gastrointestinal History: Reports: None Genitourinary History: Reports: None 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 Musculoskeletal History: Reports: None Neurological History: Reports: Brain Injury Psychiatric History: Reports: Addiction, Bipolar Endocrine/Metabolic History: Reports: None Hematologic History: Reports: None Immunologic History: Reports: None Oncologic (Cancer) History: Reports: None Dermatologic History: Reports: None - Past Surgical History Head Surgeries/Procedures: Reports: None HEENT Surgical History: Reports: Adenoidectomy, Eye Surgery, Tonsillectomy Cardiovascular Surgical History: Reports: None Respiratory Surgical History: Reports: None GI Surgical History: Reports: None, Appendectomy Male Surgical History: Reports: None Endocrine Surgical History: Reports: None Neurological Surgical History: Reports: None Musculoskeletal Surgical History: Reports: None Oncologic Surgical History: Reports: None Dermatological Surgical History: Reports: None Social & Family History - Tobacco Use Smoking Status *Q: Current Every Day Smoker Years of Tobacco use: 20 Packs/Tins Daily: 0.1 - Caffeine Use Caffeine Use: Reports: Coffee, Soda, Tea - Recreational Drug Use Recreational Drug Use: No Other Recreational Drug Type: has not used for about 2 months ago ED ROS GENERAL - Review of Systems Review Of Systems: See Below Constitutional: Denies: Fever, Chills, Diaphoresis HEENT: Reports: No Symptoms Respiratory: Denies: Shortness of Breath, Wheezing, Pleuritic Chest Pain, Cough Cardiovascular: Reports: Chest Pain GI/Abdominal: Denies: Abdominal Pain, Nausea, Vomiting Musculoskeletal: Denies: Neck Pain, Shoulder Pain, Arm Pain, Back Pain Skin: Reports: No Symptoms Neurological: Reports: Tingling (gets occasional tingling of his feet) ED EXAM, GENERAL - Physical Exam Exam: See Below General Appearance: Alert, Anxious Throat/Mouth: Normal Inspection Head: Atraumatic Neck: Supple Respiratory/Chest: No Respiratory Distress, Lungs Clear, Normal Breath Sounds, Other (Tender L ant mid chest) Cardiovascular: Regular Rate, Rhythm GI/Abdominal: Soft, Non-Tender Extremities: Normal Inspection, Normal Range of Motion Neurological: Alert, Oriented, No Motor/Sensory Deficits Skin Exam: Warm, Dry, Normal Color EKG INTERPRETATION EKG Date: 12/30/19 Rhythm: NSR [place]: Normal P-Wave: Present QRS: Normal ST-T: Normal Course - Vital Signs Last Recorded V/S: Last Vital Signs Temp 97.7 F 12/30/19 13:49 Pulse 73 12/30/19 15:46 Resp 16 12/30/19 15:46 BP 136/72 12/30/19 15:46 Pulse Ox 99 12/30/19 15:46 - Orders/Labs/Meds Orders: Active Orders 24 hr Category Date Time Status Chest 1V Frontal [CR] Stat Exams 12/30/19 14:07 Taken Peripheral IV Insertion Adult [OM.PC] Stat Oth 12/30/19 14:07 Ordered Labs: Laboratory Tests 12/30/19 Range/Units 14:25 Troponin I < 0.017 (0.00-0.056) ng/mL Meds: Medications Discontinued Medications Generic Name Dose Route Start Last Admin Trade Name Freq PRN Reason Stop Dose Admin Acetaminophen 975 mg 12/30/19 14:07 12/30/19 14:23 Tylenol PO 12/30/19 14:08 975 mg NOW ONE Administration Aspirin 324 mg 12/30/19 14:07 12/30/19 14:23 Aspirin PO 12/30/19 14:08 324 mg ONETIME ONE Administration Sodium Chloride 10 ml 12/30/19 14:07 Saline Flush FLUSH ASDIRECTED PRN Keep Vein Open Departure - Departure Time of Disposition: 15:32 Disposition: Home, Self-Care 01 Condition: Fair Clinical Impression: Atypical chest pain, Chest wall pain Instructions: Chest Wall Pain, [id number], Nonspecific Chest Pain, Adult, [id number] Referrals: PCP,None [Primary Care Provider] - Forms: ED Department Discharge Additional Instructions: You have almost stopped smoking. Work hard to completely stop smoking. Eat a healthy well balanced diet and continue to lose weight. Try get back down to your ideal body weight. Gradually increase your exercise. Try get a good 30 to 40 minutes of good exertional aerobic exercise 3 to 4 times a week. See one of our local [facility] providers for a complete physical, cholesterol profile as soon as you can make that work for you. Call [phone] for appointment. Return to ED as needed if symptoms worsen in any way. Sepsis Event Note (ED) - Evaluation Sepsis Screening Result: No Definite Risk - Focused Exam Vital Signs: Vital Signs Temp Pulse Resp BP Pulse Ox 12/30/19 15:46 73 16 136/72 99 12/30/19 13:49 97.7 F 84 13 155/85 H 98 - My Orders Last 24 Hours: My Active Orders 12/30/19 14:07 Chest 1V Frontal [CR] Stat Peripheral IV Insertion Adult [OM.PC] Stat - Assessment/Plan Last 24 Hours: My Active Orders 12/30/19 14:07 Chest 1V Frontal [CR] Stat Peripheral IV Insertion Adult [OM.PC] Stat
--- NOTE | 2019-12-31 10:44 | CR ---
Chest: Portable view of the chest was obtained. Comparison: Prior chest x-ray of 03/21/19. Heart size and mediastinum are normal. Lungs show no acute parenchymal change. Bony structures are grossly intact. Impression: 1. Nothing acute is seen on portable chest x-ray. Diagnostic code #1 This report was dictated in MDT
== END 2019-12-30 15:45 | disposition home or self-care (01) ==
LOC: JD.ED 13:37
DX: R07.89 Other chest pain (principal); F17.210 Nicotine dependence, cigarettes, uncomplicated; Z88.2 Allergy status to sulfonamides; Z79.82 Long term (current) use of aspirin
CPT/HCPCS: 36415; 71045; 84484; 93005; 99285; A9270; 93010; 99283